=== PATIENT | female | born 1965 | race Caucasian/White ===

== ENCOUNTER 2019-08-18 15:21 | Emergency (ER) | payer BC ==
[~2019-08-18] VITALS: Ht 170.2 cm; Wt 58.6 kg
[2019-08-18] MEDS ORDERED: ASPI-496 PO (17:16)
[2019-08-18] MEDS ORDERED: GLAUCOMA MEDS (17:16)
--- NOTE | 2019-08-18 17:17 | NUR ---
TASK RN: FIRST CONTACT WITH PT. Pt ambulates to room from lobby with steady gait and balance. NADN. No obvious defecits observed. Pt c/o intermittent left chest pain with one episode of nausea. Pt states, "I am scheduled for a knee repair in two weeks, and I want to make sure I am okay before I go under." Pt resting on gurney connected to NIBP cuff, continous pulse ox monitor, and technical translator. Bedrails up x 2 and call light within reach. Pt provided warm blanket for comfort measures. No other needs requested at this time.
[2019-08-18] MEDS ORDERED: ASPIRIN 81 MG TABLET CHEW ONE (17:21)
--- NOTE | 2019-08-18 17:27 | NUR ---
TASK RN: Pt provided medicaitons per [facility]. Labs obtained by label printer at bedside. X-ray tech at bedside transporting pt on gurney to x-ray. NADN. No needs expressed.
[2019-08-18] MEDS ORDERED: ASPIRIN 81 MG TABLET CHEW PO ONE (17:30)
[2019-08-18 17:35] LABS: BASOPHILS # (AUTO) 0.04 x10^3/uL (0-0.1); BASOPHILS % (AUTO) 1 % (0-1); EOSINOPHILS % (AUTO) 2 % (1-7); LYMPHOCYTES # (AUTO) 2.26 x10^3/uL (1-3.4); LYMPHOCYTES % (AUTO) 41 % (22-44); MD NO; MEAN CORPUSCULAR HEMOGLOBIN 30.8 pg (27.0-34.8); MEAN CORPUSCULAR HGB CONC 33.5 g/dL (32.4-35.8); MEAN PLATELET VOLUME 8.8 fL (7.4-10.4); MONOCYTES # (AUTO) 0.52 x10^3/uL (0.2-0.8); MONOCYTES % (AUTO) 9 % (2-9); NEUTROPHILS # (AUTO) 2.64 x10^3/uL (1.8-6.8); NEUTROPHILS % (AUTO) 48 % (42-75); PLATELET COUNT 273 x10^3/uL (130-400); RED BLOOD COUNT 5.03 x10^6/uL (3.82-5.3)
[2019-08-18 17:43] LABS: ALANINE AMINOTRANSFERASE 29 U/L (12-78); ALBUMIN 4.3 g/dL (3.4-5.0); ANION GAP 8 mmol/L (5-15); CALCIUM 9.5 mg/dL (8.5-10.1); CHLORIDE 108 mmol/L (98-107); CREATININE 0.78 mg/dL (0.55-1.02)
[2019-08-18 17:52] LABS: ALKALINE PHOSPHATASE 80 U/L (45-117); BILIRUBIN,TOTAL 0.5 mg/dL (0.2-1.0); TOTAL PROTEIN 8.2 g/dL (6.4-8.2); TROPONIN I < 0.015 ng/mL (0.000-0.045)
[2019-08-18 18:01] VITALS: BP 158/96
--- NOTE | 2019-08-18 18:01 | NUR ---
PT UPRIGHT ON GURNEY AWAKE & COMFORTABLE, RESPONDS APPROP TO STAFF, NAD AT REST, COMFORT MEASURES PROVIDED, CALL LIGHT WITHIN REACH.
--- NOTE | 2019-08-18 19:06 | NUR ---
REPORT GIVEN TO REMY
== END 2019-08-18 19:13 | disposition home or self-care (01) ==
LOC: ED 19:00
DX: R07.89 Other chest pain (principal)
CPT/HCPCS: 36415; 71046; 80053; 84484; 85025; 93005; 99284

== ENCOUNTER 2019-09-02 15:06 | Outpatient (CLI) | payer BC ==
[~2019-09-02 15:06] MED LIST: ASPI-496 PO; GLAUCOMA MEDS
[2019-09-02] MEDS ORDERED: latanaprost EC (16:02)
[2019-09-02] MEDS ORDERED: VIT1CAPS16 PO (16:02)
[2019-09-02] MEDS ORDERED: calcium PO (16:02)
== END 2019-09-02 23:59 | disposition home or self-care (01) ==
LOC: STAR 15:06
PROVIDERS: ATTEND Orthopaedic Surgery
DX: Z02.9 Encounter for administrative examinations, unspecified (principal)